=== PATIENT | female | born 1985 | race Caucasian/White ===

== ENCOUNTER 2024-10-29 08:53 | Observation (INO) | payer OTHER, SELFPAY ==
[2024-10-29 09:07] VITALS: BP 132/73; BMI 28.2
[2024-10-29] MEDS: MAALOX 30 ML PO (09:52)
[2024-10-29 10:18] LABS: Hematocrit 34.2 % (37.0-47.0); Hemoglobin 11.6 g/dL (12.0-16.0); Mean Corp Hgb Conc. 33.9 g/dL (33.0-37.0); Mean Corpuscular Hgb 29.1 pg (27.0-31.0); Mean Corpuscular Volume 85.9 fL (81.0-99.0); Platelet Count 317 10^3/uL (130-400); Red Blood Cell Count 3.98 10^6/uL (4.20-5.40); Red Cell Dist. Width 13.2 % (11.5-14.5); White Blood Cell Count 8.2 10^3/uL (4.8-10.8)
[2024-10-29 10:39] LABS: Amphetamines Negative (Negative); Barbiturates Negative (Negative); Benzodiazepines Negative (Negative); Buprenorphine Negative (Negative); Cocaine Negative (Negative); Marijuana Negative (Negative); Methadone Negative (Negative); Methamphetamines Negative (Negative); Opiates Negative (Negative); Phencyclidine Negative (Negative); Tricyclic Antidepressants Negative (Negative)
[2024-10-29 10:42] LABS: ALT (SGPT) 12 U/L (0-35); AST (SGOT) 18 U/L (14-36); Albumin 3.6 g/dl (3.5-5.0); Alkaline Phosphatase 103 U/L (38-126); Blood Urea Nitrogen 7 mg/dl (7-17); Calcium 9.5 mg/dl (8.4-10.2); Carbon Dioxide 24 mmol/L (22-30); Chloride 104 mmol/L (98-107); Estimated Creatinine Clearance > 125 ml/min; Glucose 117 mg/dl (70-99); Potassium 3.5 mmol/L (3.5-5.1); Sodium 137 mmol/L (135-145); Total Bilirubin 0.3 mg/dl (0.2-1.3); Total Protein 6.8 g/dl (6.3-8.2); eGFR > 60.00
[2024-10-29 11:46] LABS: Urine Protein < 5 mg/dl
[2024-10-29] MEDS: PEPCID 20 MG IV (12:39)
[2024-10-29] MEDS: NSS (PRESERVATIVE FREE) 8 ML IV (12:39)
[2024-10-29 14:09] LABS: Hepatitis B Surface Antigen Negative (Negative)
[2024-10-29 14:27] LABS: Hepatitis B Core Ab, Total Negative (Negative); Hepatitis B Surface Antibody Positive; Hepatitis C Antibody Negative (Negative)
[2024-10-29 15:15] LABS: Rubella Positive
[2024-10-29 15:28] LABS: HIV Combo Negative (Negative)
== END 2024-10-29 15:04 | disposition home or self-care (01) ==
LOC: LDRP 08:53
PROVIDERS: ADMITTING PHYSICIAN Obstetrics & Gynecology
DX: O26.893 Other specified pregnancy related conditions, third trimester (principal); K21.9 Gastro-esophageal reflux disease without esophagitis; O09.523 Supervision of elderly multigravida, third trimester; Z3A.35 35 weeks gestation of pregnancy; J45.909 Unspecified asthma, uncomplicated; Z28.39 Other underimmunization status; Z88.1 Allergy status to other antibiotic agents
CPT/HCPCS: 76805; 80053; 80306; 82570; 84156; 85027; 86704; 86706; 86762; 86780; 86803; 86850; 86900; 86901; 87070; 87340; 87389; G0378

== ENCOUNTER 2024-11-12 11:38 | Inpatient (IN) | payer OTHER, SELFPAY ==
[2024-11-12 12:11] VITALS: BP 141/84; BMI 29.7
[2024-11-12] MEDS: CYTOTEC PO ×2 (13:00→22:50)
[2024-11-12 13:08] LABS: % Basophils 0.4 % (0-2); % Eosinophils 0.8 % (0-6); % Immature Granulocytes 0.7 % (0-0.5); % Monocytes 5.6 % (1.7-9.3); % Neutrophils 70.5 % (42.2-75.2); Absolute Eosinophils 0.1 10^3/uL (0-0.7); Absolute Immature Granulocytes 0.1 10^3/uL (0-0.05); Absolute Monocytes 0.5 10^3/uL (0.1-0.6); Absolute Neutrophils 6.4 10^3/uL (1.4-6.5); Hematocrit 36.5 % (37.0-47.0); Hemoglobin 12.4 g/dL (12.0-16.0); Mean Corpuscular Hgb 29.1 pg (27.0-31.0); Mean Corpuscular Volume 85.7 fL (81.0-99.0); Mean Platelet Volume 10.2 fL (7.4-10.4); Nucleated Red Blood Cells % 0 %; Platelet Count 333 10^3/uL (130-400); Red Blood Cell Count 4.26 10^6/uL (4.20-5.40); Red Cell Dist. Width 13.4 % (11.5-14.5); White Blood Cell Count 9.1 10^3/uL (4.8-10.8)
[2024-11-12 13:23] LABS: ALT (SGPT) 13 U/L (0-35); AST (SGOT) 21 U/L (14-36); Albumin 4.1 g/dl (3.5-5.0); Alkaline Phosphatase 121 U/L (38-126); Blood Urea Nitrogen 10 mg/dl (7-17); Calcium 9.9 mg/dl (8.4-10.2); Carbon Dioxide 22 mmol/L (22-30); Chloride 106 mmol/L (98-107); Estimated Creatinine Clearance > 125 ml/min; Glucose 84 mg/dl (70-99); Sodium 137 mmol/L (135-145); Total Bilirubin 0.4 mg/dl (0.2-1.3); Total Protein 7.8 g/dl (6.3-8.2); eGFR > 60.00
[2024-11-12] MEDS: CYTOTEC 25 MICROGRAM VAG (13:25)
[2024-11-12] MEDS: LR 1000 IV ×2 (13:26→20:55)
[2024-11-12 13:37] LABS: Protein/creatinine Ratio 0.7; Urine Protein 12 mg/dl
[2024-11-12 13:39] LABS: Amphetamines Negative (Negative); Barbiturates Negative (Negative); Benzodiazepines Negative (Negative); Buprenorphine Negative (Negative); Cocaine Negative (Negative); Marijuana Negative (Negative); Methadone Negative (Negative); Methamphetamines Negative (Negative); Opiates Negative (Negative); Phencyclidine Negative (Negative); Tricyclic Antidepressants Negative (Negative)
[2024-11-12] MEDS: PEPCID 20 MG PO (14:20)
[2024-11-12] MEDS: CYTOTEC 50 MICROGRAM PO (17:27)
[2024-11-12] MEDS: CLEOCIN 50 IV (23:05)
[2024-11-12] MEDS: TYLENOL 1000 MG PO (23:07)
[2024-11-12] MEDS: GENTAMICIN 61.375 MG IV (23:07)
[2024-11-12] MEDS: BICITRA 30 ML PO (23:07)
[2024-11-12 23:55] LABS: Cord ABG Comment CORD BLOOD
[2024-11-12 23:56] LABS: B.E. Cord ABG -2.1 mMOL/L; HCO3 Cord ABG 24.7 mmol/L; O2 Saturation % Cord ABG 37.4 %; PCO2 Cord ABG 49 mmHg; PO2 Cord ABG 16 mmHg; pH Cord ABG 7.31
[2024-11-13] LABS: B.E. Cord ABG -3.6 mMOL/L; HCO3 Cord ABG 24.9 mmol/L; O2 Saturation % Cord ABG 19.5 %; PCO2 Cord ABG 58 mmHg; PO2 Cord ABG 14 mmHg; pH Cord ABG 7.24
--- NOTE | 2024-11-13 00:44 | OR.RPT ---
Operative Report
Operative Report
Procedure date: 11/12/2024
Preop diagnosis: IUP @37.0, preeclampsia w/o SF, non-reassuring heart tones, no care
Postop diagnosis: same, IUGR
Procedure: Primary low transverse section
Surgeon: Paulette
Anesthesia: Spinal, Dr. Forte
QBL: 325mL
Findings: Viable female infant born at 2340, with Apgars 6/7/8. Umbilical cord present at hysterotomy and appeared to be an occult cord. head floating. Very thick lower uterine segment. Copious amount of amniotic fluid. Nuchalx1. Delayed cord
clamping not performed as infant was limp at delivery. 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 Infant w/ low set ears, club feet, and clenched hands/legs. Placenta was very small. Uterus was not exteriorized
because abdomen was tight- ovaries and fallopian tubes were not visualized.
Complications: none
Indication: Patient is a 39yo @37.0 who presented to Labor and Delivery for complaints of contractions. She was not in labor, but met criteria for preeclampsia without severe features so she was kept for induction of labor. Patient had not
received any care and was dated by a 35 week ultrasound. Her induction was started with Cytotec. She received 2 doses. After the second dose of Cytotec had periods of late decelerations. Patient was repositioned multiple times but there
were still periods of late decelerations. Her exam remained minimally changed. Primary section was recommended for non-reassuring heart tones. Risks, benefits and alternatives discussed and all questions answered. Consents signed and
anesthesia was notified.
Procedure: Patient was taken to the operating room where spinal anesthesia was administered and found to be adequate. 5mg/kg of Gentamicin and 900mg Clindamycin were given for antibiotic prophylaxis. The abdomen was prepped with ChloraPrep. The
patient was draped in the normal sterile fashion. She was placed in the dorsal supine position with a left lateral tilt. A Pfannenstiel incision was made with a 10 blade and carried down to the fascia with a scalpel. Hemostasis achieved with Bovie.
The fascia was incised and dissected laterally with Ramey scissors. The superior aspect of the fascia was grasped with Rolando clamps. The underlying rectus fascia was sharply dissected with Ramey scissors. In a similar fashion the inferior aspect of
the fascia was elevated with Rolando clamps and the rectus muscle was dissected off with Ramey scissors. The rectus muscles were down the midline to the level of the pubic symphysis with manual dissection. The peritoneum was bluntly entered
and extended using manual traction.
Carrillo retractor and bladder blade were placed revealing good visualization of the bladder. The vesicouterine peritoneum was identified. A very thick lower uterine segment was noted. The lower uterine segment was incised with a scalpel. Copious
amount of clear amniotic fluid and umbilical cord noted at entry. The uterine incision was extended bluntly with lateral and upward traction.
The fetus was in cephalic presentation. The head was floating. The head was elevated out of the pelvis with special attention paid to avoid using the uterine incision as a fulcrum. Gentle fundal pressure was applied once the head was brought
to the incision and the head delivered through the hysterotomy. Nuchal x1 was reduced. The rest of the delivered without difficulty. Delayed cord clamping was not performed per neonatology. The was handed off to the white lead grinder. IV
oxytocin was started to facilitate uterine contractions. The placenta was delivered with fundal massage and gentle downward traction. The uterus was not able to be exteriorized as the abdomen was very tight. Bradly retractor was placed in the
abdomen. Allis clamps were placed at the apices of the hysterotomy. The inside of the uterus was wiped with a lap sponge to assure complete removal of placental membranes. Fundal massage was performed and uterus was firm. The uterine incision was
closed with 0 Vicryl in a running locked fashion. A horizontal imbricating stitch was done on the hysterotomy with 0 Vicryl. There was oozing along the hysterotomy and figure of eights were placed with 0 Vicryl to achieve hemostasis. Bovie cautery
was used on oozing areas of the serosa. The hysterotomy was inspected and noted to be hemostatic. The Bradly retractor was removed from the abdomen. Blood clots and fluid were wiped out of the abdomen and pelvis with moist laparotomy sponges. The
hysterotomy was inspected again and was hemostatic.
The rectus muscles were inspected and were hemostatic. The fascial layer was closed in a running continuous fashion using 0 Vicryl. The subcutaneous tissue was copiously irrigated and any small bleeding vessels were cauterized with Bovie cautery.
The subcutaneous tissue was reapproximated in a running continuous fashion with 2-0 Plain. The skin was closed with 4-0 Vicryl in a subcuticular fashion and covered with skin glue. The patient tolerated the procedure well. All sponge and instrument
counts were correct times two. The patient was taken to the recovery room in stable condition. Roberts catheter was draining clear urine at the end of the procedure.
--- NOTE | 2024-11-13 01:00 | HPS.HSE ---
Family Physician
-
Family Physician: NOT KNOW UNKNOWN - PT DOES
Chief Complaint
-
contractions
History of Present Illness
HPI: Patient is a 39yo @37.0 (dated by 35wk US) who presents with complaints of contractions. She reports contractions started at 0900 and were every 3 minutes. She feels like they aren't happening much anymore. She denies VB or LOF. She
said she has felt less FM today. Denies headache, vision changes, chest pain, SOB or RUQ pain. Patient was seen here once 2 weeks ago but never followed up in the office. She said she had a bad experience at [facility] with her last so she
didn't want to follow up.
complications:
- No care
- History of gHTN G4
PMHx: Asthma
Meds: albuterol prn
Surghx: ear tubes, tonsills and adenoids, wisdom teeth
All: Ceclor- hives
Socialhx: denies tobacco, etoh or illicit drug use
OBHX: FT SVDx4, last one was IOL for gHTN, SABx1
labs: Blood type A+, Antibody neg, UDS neg, RPR non-reactive, HBsAg neg, Hep B immune, Hep C neg, HIV neg, Rubella immune, GBS negative
Medical History
Past Medical History
Past Medical History: Reports Asthma
Past Surgical History: Reports Other
Additional Past Surgical History:
ear surgery, tonsils and adenoids
Social History
Tobacco: Non-smoker
Alcohol: None
Drug: None
Family History
Family History: Not pertinent
Allergies / Home Medications
Allergies reflects when Allergies were last updated in [facility].
Home Medications with original date entered in [facility]
Allergy/Medication List:
All: ceclor- hives
Meds: PNV
Review of Systems
-
A 12 point ROS was completed and negative except as noted: Yes
Physical Exam
Vital Signs
Vital Signs
Temp Pulse Resp BP
99.3 F 86 20 141/84
11/12/24 12:11 11/12/24 12:11 11/12/24 12:11 11/12/24 12:11
Physical Exam
General: Well Developed and Well Nourished
HEENT: NormoCephalic
Respiratory: Non Labored Respirations
Cardiac: Regular Rhythm
Skin: Warm and Dry
Neuro: Awake and Alert
Psych: Calm
Laboratory Results
-
11/12/24 12:53
Laboratory Results
Total Bilirubin 0.4 mg/dl (0.2-1.3) 11/12/24 12:53
AST 21 U/L (14-36) 11/12/24 12:53
ALT 13 U/L (0-35) 11/12/24 12:53
Alkaline Phosphatase 121 U/L (38-126) 11/12/24 12:53
Impression/Plan
-
IMPRESSION:
39yo @37.0 presents w/ contractions, found to have gHTN vs PEC
PLAN:
- Patient not in labor, however she had an elevated BP during her last admission and has had 2 here today, meeting criteria for at least gHTN. Since she is 37 weeks, will admit patient for IOL. Pt had one severe range BP, but repeat was normotensive
- PEC labs ordered
- GCCT ordred in urine
- UDS ordered since patient has not had care- pt aware
- Plan to place Cytotec 25mcg PV. 50mcg PO q4h for a max of 6 doses
- cEFM/toco. Category 1 tracing
[2024-11-13] MEDS: TORADOL 15 MG IV ×3 (06:01→17:59)
[2024-11-13] MEDS: PEPCID PO (08:43)
--- NOTE | 2024-11-13 12:34 | W.PN.ANS.POP ---
Anesthesia Post Operative
- Anesthesia Post Op Note
Vital Signs Stable-See Nursing Note: Yes
Airway Patent: Yes
Adequate Pain Control: Yes
Change in Mental Status: No
Current Postoperative Nausea & Vomiting: No
Anesthesia Complications: No
General Anesthetic Recall: No
Unplanned Admission: No
Post Op Hydration Adequate: Yes
[2024-11-14] MEDS: TORADOL 15 MG IV (02:07)
[2024-11-14] MEDS: TYLENOL 650 MG PO ×2 (06:17→16:49)
[2024-11-14] MEDS: PEPCID PO (08:28)
--- NOTE | 2024-11-14 13:00 | CM ---
Addendum entered by Neyda Bell 11/14/24 12:59:
[facility] REPORT MADE TO [facility][id number]. Awaiting follow up directions from [facility].
Original Note:
CM following re: d/c planning.
Baby remains in the NICU.
CM met with JEERMY Hardy.
Daughter's name is Kade Ott.
CM c/s re: no care, baby + for THC.
Lengthy conversation with mother.
This is Hayley's 5th child - ages: 16 (resides with his dad and grandmother - denies legal or custody issues), 15 (attends [employer], issues with truancy and has a truancy SW), 7 (attends [employer]), 2.5 (home with mom).
NEVILLE Garvey) is father for the youngest 3 children. He works 3 jobs - janitorial work, rn labor and delivery, cleaning jobs. They have one car and he is usually using it.
Mom is home with the 2.5 year old and plans to stay home with the baby. She has no plans to work for now.
Mom denies any mental health history; denies meds or therapy. Denies drug or etoh use / abuse.
We discussed the +THC and she denies using marijuana, solely prior to . She states NEVILLE has a medical marijuana card. She is uncertain how baby tested positive.
We discussed lack of care. Mom states this is due to the transportation issue. She also states she had a miscarriage last October, which was traumatic for her, so she was uncertain if she would have another one, so that is another reason she
did not pursue appts. She tells she does not like hospitals or doctors. She states they will be following up with [facility]; she has already contacted them and they seem nice. KARI inquired how she will get to appointments, with the lack of
reliable transportation. She states she is able to use her mom's second car. She states she is too proud to take from others and have parents help, but she will do so. CM encouraged her to take all the help she can get, as it is imperative she get
follow up for the baby. She agreed.
We discussed in more detail re: truancy issues for 15 year old. She state he has a lot of behavioral problems and it can be difficult to get him to school. It does not help that they reside in [place], but drive him to [facility] (using her
mom's address / her old address). He has an IEP. Truancy SW visits regularly.
Mom states they were getting food stamps, but missed the renewal deadline, so were cut off. She states they have to send in proof of income and can get them again. CM encouraged her to do this, as this will be a big help financially. Her children do
get free lunch at school.
She has no interest in getting WIC, as she had it for another child, but they do not have the organic formula brand she wishes to use, so she will pay privately for this. She does plan to breast feed. KARI offered assistance getting a pump for her
through [employer], but she reports she already bought one at [facility] for $25.
Additionally, she states they are moving into a bigger apartment soon at the same complex.
KARI advised mom a report will be filed with [facility] and took phone number ([phone]), as well as her mom's phone number, phone which she is using right now [phone]. She states she does not have a phone right now. KARI advised her she can get a
phone through her Medicaid ([employer]). She states she does not like taking free things. KARI advised her of the importance of having a reliable phone, to which she agreed.
She had FOB on speakersphone towards the end of our conversation. They are anxious about the report and involvement with [facility]. KARI provided encouragement and advised her to be honest and cooperative.
--- NOTE | 2024-11-14 18:59 | W.DS.TRANS ---
DC Summary - [employer] Breathing [employer]aratus
-
Discharge Instructions:
Discharge Diagnosis/Procedures delivered by primary csection;
nonreassuring FHT
Diet Regular
Activity No strenuous activity
Driving Restrictions No driving for 2 weeks
Bathing Restrictions OK to Shower
Instructions:
Stand-Alone Forms: LDRP Delivery
LDRP Hypertensive Disorders
Changes to Home Medications: No
Discharge Medications:
DC Medications w/original date entered in [facility]
prenat.vits,porter,lfr-dwqn-icbbt 1 tab PO DAILY Supplement 11/12/24
acetaminophen 325 mg tablet 650 mg (2 x 325 mg) PO Q4HPRN PRN mild pain #0 tabs 11/14/24
ibuprofen 600 mg tablet 600 mg PO Q6HPRN PRN cramps #0 tabs 11/14/24
vitamin with calcium no.72-iron 27 mg-folic acid 1 mg tablet (WesTab Plus) 1 tab PO DAILY #0 tabs 11/14/24
Home Medication Changes
Pending Results: No
Total time spent discharging patient (in min): 20
== END 2024-11-14 18:00 | disposition home or self-care (01) | DRG 788 ==
LOC: LDRP 11:38
PROVIDERS: ADMITTING PHYSICIAN Student in an Organized Health Care Education/Training Program
PROC: 10D00Z1 Extraction of Products of Conception, Low, Open Approach (ICD-10-PCS; 2024-11-13)
DX: O14.04 Mild to moderate pre-eclampsia, complicating childbirth (principal); Z3A.37 37 weeks gestation of pregnancy; Z37.0 Single live birth; O76 Abnormality in fetal heart rate and rhythm complicating labor and delivery; O69.81X0 Labor and delivery complicated by cord around neck, without compression, not applicable or unspecified
CPT/HCPCS: 88307; 80053; 80306; 82570; 82803; 84156; 85025; 86850; 86900; 86901; 87491; 87591